=== PATIENT | male | born 1960 | race Two or more races ===

== ENCOUNTER 2019-02-07 10:29 | Inpatient (IN) | payer MEDICAID ==
[~2019-02-07] VITALS: Ht 180.3 cm; Wt 119.3 kg
[2019-02-07 11:44] LABS: Basophils # (auto) 0 uL; Basophils % (auto) 0.5 % (0.0-2.0); Eosinophils # (auto) 0 uL; Eosinophils % (auto) 0.6 % (0.0-7.0); Hematocrit 46.4 % (41.0-53.0); Hemoglobin 15.6 g/dL (13.5-17.5); Lymphocytes # (auto) 1.7 uL; Lymphocytes % (auto) 24.2 % (10.0-50.0); Mean Corpuscular Hemoglobin 31.8 pg (28.0-32.0); Mean Corpuscular Hgb Conc. 33.6 g/dL (32.0-36.0); Mean Corpuscular Volume 94.9 fL (80.0-100.0); Monocytes # (auto) 0.7 uL; Monocytes % (auto) 10.5 % (0.0-12.0); Neutrophils # (auto) 4.4 uL; Neutrophils % (auto) 64.2 % (37.0-80.0); Nucleated Red Blood Cells % 0.1 %; Platelet Count (auto) 206 10^3/uL (140-450); Red Blood Cells 4.89 10^6/uL (4.5-5.90); Red Cell Distribution Width 14.7 % (11.8-14.3); White Blood Cell 6.8 10^3/uL (4.4-10.8)
[2019-02-07] MEDS ORDERED: HYDROmorphone HCL 2 MG/ML VL IV ONE (11:45)
[2019-02-07] MEDS ORDERED: CLINDAMYCIN 900MG IV 50 ML IV ONE (11:45)
[2019-02-07] MEDS ORDERED: ONDANSETRON HCL 4 MG/2 ML VIAL IV ONE (11:45)
[2019-02-07 12:02] LABS: Albumin 3.6 g/dL (3.4-5.0); Anion Gap 9 (5-15); Blood Urea Nitrogen 21 mg/dL (7-18); Calcium 8.5 mg/dL (8.5-10.1); Carbon Dioxide 23 mmol/L (21-32); Chloride 108 mmol/L (98-107); Glucose 93 mg/dL (74-106); Potassium 4.1 mmol/L (3.5-5.1); Sodium 140 mmol/L (136-145)
[2019-02-07 12:08] LABS: Alanine Aminotransferase 44 U/L (16-61); Alkaline Phosphatase 124 U/L (45-117); Aspartate Aminotransferase 41 U/L (15-37); BUN/Creatinine Ratio 13.7; Bilirubin, Total 0.6 mg/dL (0.2-1.0); GFR African American 60 mL/min; GFR Non-African American 50 mL/min; Total Protein 7.8 g/dL (6.4-8.2)
[2019-02-07] MEDS ORDERED: NITROGLYCERIN 0.4MG/HR TOPICAL PATCH TD ONE (14:15)
[2019-02-07] MEDS: SODIUM CHLORIDE 0.9% 1,000 ML IV SCH (15:38)
[2019-02-07] MEDS ORDERED: NALBUPHINE HCL 10 MG/1ml INJECTION IV PRN (15:45)
[2019-02-07] MEDS ORDERED: ACETAMINOPHEN 500 MG TAB PO PRN (15:45)
[2019-02-07] MEDS ORDERED: NITROGLYCERIN 0.4 MG SL TAB SL PRN (15:45)
[2019-02-07] MEDS ORDERED: LACTULOSE 20Gm/30ML SOLN PO PRN (15:45)
[2019-02-07] MEDS ORDERED: PROMETHAZINE HCL 25 MG/ML 1ML IV PRN (15:45)
[2019-02-07] MEDS ORDERED: MORPHINE SULF INJ 2 MG/ML SYRINGE 1ML IV PRN (15:45)
[2019-02-07] MEDS ORDERED: ALBUTEROL SULF 2.5 MG/0.5ML(0.5%) NEB SOLN NEB PRN (15:45)
[2019-02-07] MEDS ORDERED: HYDROcodone-ACET 5/325MG TAB PO PRN (15:45)
[2019-02-07] MEDS ORDERED: SODIUM CHLORIDE 0.9% 1,000 ML IV ONE (15:45)
[2019-02-07] MEDS ORDERED: CARISOPRODOL 350 MG TAB PO ONE (15:45)
[2019-02-07 15:55] VITALS: BP 95/47
[2019-02-07] MEDS: cefTRIAXone 1GM/50ML D5W 50 ML IV SCH (16:12)
[2019-02-07 16:30] LABS: CRP High Sensitivity 0.69 mg/dL (< 0.3)
[2019-02-07] MEDS: IPRATROPIUM BROM 0.5 MG/2.5ML INH SOL NEB SCH (18:00)
[2019-02-07] MEDS: ALBUTEROL SULF 2.5 MG/0.5ML(0.5%) NEB SOLN NEB SCH (18:00)
[2019-02-07] MEDS ORDERED: POTA10TA51 PO (18:48)
[2019-02-07] MEDS ORDERED: PANT40TA2 PO (18:48)
[2019-02-07] MEDS ORDERED: TRAZ100T2 PO (18:48)
[2019-02-07] MEDS ORDERED: POM (18:48)
[2019-02-07] MEDS ORDERED: MULTTAB61 PO (18:48)
[2019-02-07] MEDS ORDERED: FURO20TA3 PO (18:48)
[2019-02-07] MEDS ORDERED: ALBUAER3 IN (18:48)
[2019-02-07] MEDS ORDERED: LISI40TA PO (18:48)
[2019-02-07] MEDS ORDERED: HYDR-531 PO (18:48)
--- NOTE | 2019-02-07 18:48 | NUR ---
TELE ADMIT PATIENT ARRIVED ON THE FLOOR AT APPROXIMATELY 1755 VIA W/C. HE IS ALERT AND ORIENTED. BLE ARE EDEMATOUS WITH ERYTHEMA. NO DRAINAGE NOTED AT THIS TIME. PICTURES TAKEN FOR WOUND CARE. PATIENT C/O PAIN WHEN LEGS ARE TOUCHED LIGHTLY. DENIES NEEDING ANYTHING AT THIS TIME. CALL LIGHT WITHIN REACH. HOB ELEVATED IN SEMI FOWLERS POSITION. ID BAND ON.
--- NOTE | 2019-02-07 19:00 | NUR ---
Opening Shift Note Assumed care of patient, awake and alert. No S/S of distress/SOB or pain. Instructed on POC and to call for assist PRN, will continue to monitor for changes Q1hr and PRN.
--- NOTE | 2019-02-07 19:59 | NUR ---
Hospitalist paged: Patient had questions regarding his PRN pain medications and refused to take PRN Nubain d/t him reading on the internet ([employer]) that he can possibly have withdrawal symptoms from [place] as a result of taking Nubain. Patient states he has been taking norco for years and does not want to take any chances having withdrawal symptoms from Nubain.
--- NOTE | 2019-02-07 21:00 | NUR ---
Hospitalist returned call: Hospitalist updated on patient's condition and situation. New orders received.
[2019-02-07] MEDS: CARISOPRODOL 350 MG TAB PO PRN (21:38)
[2019-02-07] MEDS: CLINDAMYCIN 600MG IV 50 ML IV SCH (21:38)
[2019-02-07] MEDS: TEMAZEPAM 15 MG CAP PO PRN (21:39)
[2019-02-07] MEDS: HYDROcodone-ACET 10/325MG TAB PO PRN (21:39)
[2019-02-07 22:00] VITALS: BP 131/66
[2019-02-08] MEDS: IPRATROPIUM BROM 0.5 MG/2.5ML INH SOL NEB SCH ×3 (01:03→12:00)
[2019-02-08] MEDS: ALBUTEROL SULF 2.5 MG/0.5ML(0.5%) NEB SOLN NEB SCH ×3 (01:03→12:00)
--- NOTE | 2019-02-08 01:03 | NUR ---
Respiratory note: AT BEDSIDE FOR MED NEB TX, PT REFUSING AT THIS TIME, PT STATES HIS BREATHING IS FINE AND JUST FEELS UNCOMFORTABLE. POX 97% ON RA. HR 79. WILL CONTINUE TO MONITOR.
[2019-02-08] MEDS: SODIUM CHLORIDE 0.9% 1,000 ML IV SCH ×2 (01:43→11:38)
[2019-02-08] MEDS: HYDROcodone-ACET 10/325MG TAB PO PRN ×2 (04:17→19:26)
[2019-02-08 05:00] VITALS: BP 155/59
--- NOTE | 2019-02-08 05:00 | NUR ---
Hospitalist paged: Patient complaining of increased pain. Hospitalist paged.
--- NOTE | 2019-02-08 05:45 | NUR ---
Hospitalist returned call: Hospitalist updated on patient's condition and situation. New orders obtained.
[2019-02-08] MEDS: CLINDAMYCIN 600MG IV 50 ML IV SCH ×3 (05:54→21:52)
[2019-02-08] MEDS: CARISOPRODOL 350 MG TAB PO PRN ×2 (05:55→18:18)
[2019-02-08] MEDS ORDERED: HYDROmorphone HCL 2 MG/ML VL IV ONE ×2 (06:00→20:30)
[2019-02-08 06:14] LABS: Basophils # (auto) 0 uL; Basophils % (auto) 1.1 % (0.0-2.0); Eosinophils # (auto) 0.1 uL; Eosinophils % (auto) 2.6 % (0.0-7.0); Hematocrit 42.9 % (41.0-53.0); Hemoglobin 14.4 g/dL (13.5-17.5); Lymphocytes # (auto) 1.8 uL; Lymphocytes % (auto) 40.2 % (10.0-50.0); Mean Corpuscular Hemoglobin 32.2 pg (28.0-32.0); Mean Corpuscular Hgb Conc. 33.6 g/dL (32.0-36.0); Mean Corpuscular Volume 95.8 fL (80.0-100.0); Monocytes # (auto) 0.5 uL; Monocytes % (auto) 10.9 % (0.0-12.0); Neutrophils # (auto) 2.1 uL; Neutrophils % (auto) 45.2 % (37.0-80.0); Nucleated Red Blood Cells % 0.1 %; Platelet Count (auto) 166 10^3/uL (140-450); Red Blood Cells 4.48 10^6/uL (4.5-5.90); Red Cell Distribution Width 14.7 % (11.8-14.3); White Blood Cell 4.6 10^3/uL (4.4-10.8)
[2019-02-08 06:24] LABS: Potassium 4.1 mmol/L (3.5-5.1)
--- NOTE | 2019-02-08 06:33 | NUR ---
PT REFUSED 0600 SCHEDULED BREATHING TX. PT IS ON ROOM AIR, SPO2 93%, HR 49, RR 17. NO S/S OF RESPIRATORY DISTRESS. RN BIRD AWARE OF REFUSAL.
[2019-02-08 06:36] LABS: Albumin 2.8 g/dL (3.4-5.0); Bilirubin, Total 0.4 mg/dL (0.2-1.0); Calcium 8.2 mg/dL (8.5-10.1); Total Protein 6.3 g/dL (6.4-8.2)
[2019-02-08 09:00] VITALS: BP 118/74
--- NOTE | 2019-02-08 09:00 | NUR ---
Dr. Estrada in to see patient for cardiology consult. Patient is not in his room.
--- NOTE | 2019-02-08 09:22 | NUR ---
Patient returned to room. Will inform Dr. Estrada.
--- NOTE | 2019-02-08 09:40 | NUR ---
Dr. Estrada in to see patient for cardiology consult.
[2019-02-08] MEDS: ASPirin 81 mg TAB PO SCH (09:46)
[2019-02-08] MEDS: cefTRIAXone 1GM/50ML D5W 50 ML IV SCH (09:46)
[2019-02-08] MEDS: ENOXAPARIN SOD 40 MG/0.4 ML SYRINGE SC SCH (09:46)
[2019-02-08] MEDS: PANTOPRAZOLE 40 MG TAB PO SCH (09:46)
--- NOTE | 2019-02-08 12:32 | NUR ---
PT REFUSED 1200 SCHEDULED BREATHING TX. PT IS ON ROOM AIR, SPO2 93%< HR 78, RR 16. NO S/S OF RESPIRATORY DISTRESS. PT AWARE TO HAVE RT PAGED IF HE CHANGES HIS MIND. ROSETTA MARKS IS THE COVERING NURSE AT THIS TIME AND IS AWARE WELL.
[2019-02-08 13:00] VITALS: BP 110/55
--- NOTE | 2019-02-08 16:48 | NUR ---
Dr. Singer in to see patient as primary MD.
[2019-02-08 17:00] VITALS: BP 118/61
[2019-02-08] MEDS: BUMETANIDE 1mg/4ml VIAL (0.25mg/ml) IV SCH (17:41)
--- NOTE | 2019-02-08 18:32 | NUR ---
Patient requesting pain medication but does not want [place]. Patient is requesting Dilaudid. Page placed to Dr. Singer.
--- NOTE | 2019-02-08 19:58 | NUR ---
Hospitalist paged: Patient complaining of increased pain. Hospitalist paged.
--- NOTE | 2019-02-08 20:20 | NUR ---
Hospitalist returned call: Hospitalist updated on patient's condition and situation. New orders obtained.
[2019-02-08 21:00] VITALS: BP 118/62
[2019-02-08] MEDS: POTASSIUM CHL 20 Meq TABLET PO SCH (21:52)
[2019-02-08] MEDS: MAGNESIUM OXIDE 400 MG TAB PO SCH (21:53)
[2019-02-08] MEDS: TEMAZEPAM 15 MG CAP PO PRN (21:53)
[2019-02-09] MEDS: HYDROcodone-ACET 10/325MG TAB PO PRN ×3 (01:00→12:49)
[2019-02-09] MEDS: CARISOPRODOL 350 MG TAB PO PRN ×2 (02:23→10:16)
--- NOTE | 2019-02-09 04:49 | NUR ---
Patient refused morning labs.
[2019-02-09] MEDS: CLINDAMYCIN 600MG IV 50 ML IV SCH ×2 (05:31→14:46)
[2019-02-09] MEDS: BUMETANIDE 1mg/4ml VIAL (0.25mg/ml) IV SCH (06:00)
--- NOTE | 2019-02-09 06:04 | NUR ---
Patient refused morning vital signs.
[2019-02-09 09:00] VITALS: BP 118/66
--- NOTE | 2019-02-09 09:15 | NUR ---
[employer] at bedside. Blood drawn for labs.
[2019-02-09] MEDS: POTASSIUM CHL 20 Meq TABLET PO SCH (10:00)
[2019-02-09 10:09] LABS: BUN/Creatinine Ratio 18.9; Calcium 8.4 mg/dL (8.5-10.1); Potassium 4.4 mmol/L (3.5-5.1)
[2019-02-09] MEDS: ASPirin 81 mg TAB PO SCH (10:14)
[2019-02-09] MEDS: ENOXAPARIN SOD 40 MG/0.4 ML SYRINGE SC SCH (10:14)
[2019-02-09] MEDS: PANTOPRAZOLE 40 MG TAB PO SCH (10:15)
[2019-02-09] MEDS: MAGNESIUM OXIDE 400 MG TAB PO SCH (10:16)
[2019-02-09 13:00] VITALS: BP 155/84
--- NOTE | 2019-02-09 13:37 | NUR ---
NUTRITION ASSESSMENT NOTES Please refer to link notes of nutrition screen form filed under the intervention section of the plan of care for further details. Est. Needs: 1800 kcal to 2150 kcal (15-18 kcal/kgBW), 78 gms to 94 gms pro (1.0-1.2 gms/kgIBW: 78 kg). Will continue to monitor pertinent labs and reassess nutrient need prn Thank you. Addendum: 02/09/19 at [address] Amended: Links added.
--- NOTE | 2019-02-09 15:07 | NUR ---
Dr. Singer in to see patient as primary MD.
[2019-02-09 15:43] VITALS: BP 118/61
== END 2019-02-09 16:40 | disposition home or self-care (01) | DRG 194 ==
LOC: ER 10:35 → TELE 10:36 → TELE-WESTW 17:48
PROVIDERS: ADMIT Internal Medicine; ATTEND Internal Medicine
DX: I13.0 Hypertensive heart and chronic kidney disease with heart failure and stage 1 through stage 4 chronic kidney disease, or unspecified chronic kidney disease (principal); L03.115 Cellulitis of right lower limb; L03.116 Cellulitis of left lower limb; J44.1 Chronic obstructive pulmonary disease with (acute) exacerbation; E66.01 Morbid (severe) obesity due to excess calories; N18.3 Chronic kidney disease, stage 3 (moderate); I50.33 Acute on chronic diastolic (congestive) heart failure; I25.9 Chronic ischemic heart disease, unspecified; Z96.652 Presence of left artificial knee joint; I87.8 Other specified disorders of veins; Z68.37 Body mass index [BMI] 37.0-37.9, adult; Z90.49 Acquired absence of other specified parts of digestive tract
CPT/HCPCS: 36415; 71045; 80048; 80053; 82550; 83605; 83735; 83880; 84443; 84484; 85025; 85652; 86141; 87040; 93005; 93306; 93926; 96365; 96366; 96367; 96375; G0378; J0696; J2405; J3490

== ENCOUNTER 2023-06-20 21:20 | Emergency (ER) | payer MEDICAID ==
[~2023-06-20] VITALS: Ht 182.9 cm; Wt 79.4 kg
[~2023-06-20 21:20] MED LIST: ALBUAER3 IN; APIX5TAB PO; BACL10TA PO; FURO40TA4 PO; HYDR-531 PO; LEVO500T31 PO; LISI40TA16 PO; METH10T PO; PANT40TA2 PO; POTA10TA51 PO
[2023-06-20] MEDS ORDERED: ALPRAZolam 0.5 MG TAB PO ONE (21:45)
[2023-06-20 22:17] VITALS: BP 187/113; TEMP 97.8
[2023-06-20 22:19] VITALS: PULSE 94; RESP 20; O2SAT 98
== END 2023-06-20 22:35 | disposition home or self-care (01) ==
LOC: EDBD 21:20 → ER 21:20
DX: F41.9 Anxiety disorder, unspecified (principal); I11.0 Hypertensive heart disease with heart failure; I50.9 Heart failure, unspecified; J44.9 Chronic obstructive pulmonary disease, unspecified
CPT/HCPCS: 93005